=== PATIENT | female | born 1955 | race Hispanic/Latino ===

== ENCOUNTER → 2024-05-15 | Outpatient (CLI) | payer OTHER ==
--- NOTE | 2024-05-15 13:58 | HMCIMG ---
DEXA BONE DENSITY SURVEY HISTORY: Osteoporosis COMPARISON: None FINDINGS: Bone densitometry study was performed. Bone mineral density of the lumbar spine is 0.936 gram per centimeter square which corresponds to a T score of -1.0 and a Z score of 1.1. Bone mineral density of the left hip is 0.706 grams per centimeter square which corresponds to a T score of -1.9 and a Z score of -0.4. IMPRESSION: 1. Osteopenia of the lumbar spine and left hip.
== END | disposition home or self-care (01) ==
LOC: RAH 09:41
PROVIDERS: ATTEND Internal Medicine
DX: M85.89 Other specified disorders of bone density and structure, multiple sites (principal); M81.0 Age-related osteoporosis without current pathological fracture
CPT/HCPCS: 77080